=== PATIENT | male | born 1960 | race Caucasian/White ===

== ENCOUNTER → 2024-05-04 12:53 | Outpatient (CLI) | payer OTHER, SELFPAY | LOC: RESP 12:55 | PROVIDERS: Referring Provider Chiropractor; Visit Provider Chiropractor | DX: J45.909 Unspecified asthma, uncomplicated (principal); Z87.891 Personal history of nicotine dependence; R94.2 Abnormal results of pulmonary function studies | CPT/HCPCS: 94060 ==